=== PATIENT | male | born 1945 | race Caucasian/White ===

== ENCOUNTER 2022-12-12 14:37 | Emergency (ER) | payer SELFPAY ==
[2022-12-12 15:40] LABS: #Basophils 0.1 10x3/uL (0.0-0.2); #Eosinphils 0.1 10x3/uL (0.0-0.5); #Monocytes 0.2 10x3/uL (0.0-1.1); #Neutrophils 1.8 10x3/uL (1.5-8.4); %Basophils 1.9 % (0.0-2.0); %Eosinophils 2.7 % (0.0-6.0); %Lymphocytes 18.6 % (18.0-47.0); %Neutrophils 67.3 % (40.0-75.0); Hematocrit 28.1 % (38.8-50.0); Hemoglobin 9.9 g/dL (13.5-17.5); Mean Corpuscular HGB CONC 35.2 g/dL (32.0-36.0); Mean Corpuscular Hemoglobin 36.4 pg (27.0-33.0); Mean Corpuscular Volume 103.3 fl (81.2-95.1); Mean Platelet Volume 11.6 fl (7.4-10.4); Platelet Count 163 10x3/uL (150-450); RBC Distribution Width 14.7 % (11.5-14.5); Red Blood Cell (RBC) Count 2.72 10x6/uL (4.32-5.72); White Blood Cell (WBC) Count 2.6 10x3/uL (3.5-10.5)
[2022-12-12 16:03] LABS: ALT (SGPT) 44 U/L (8-55); AST (SGOT) 50 U/L (5-34); Albumin 3.7 g/dL (3.4-4.8); Alkaline Phosphatase 156 U/L (40-110); Anion Gap 10 mmol/L (10-20); BUN (Urea Nitrogen) 20 mg/dL (8.4-25.7); Bilirubin, Total 0.8 mg/dL (0.2-1.2); Calc. Creatinine Clearance 0 mL/min (70-130); Calcium 9.1 mg/dL (7.8-10.44); Carbon Dioxide 29 mmol/L (23-31); Chloride 97 mmol/L (98-107); Estimated GFR 89; Globulin 2.1 g/dL (2.4-3.5); Glucose 96 mg/dL (83-110); Potassium 4.6 mmol/L (3.5-5.1); Protein, Total 5.8 g/dL (5.8-8.1); Sodium 131 mmol/L (136-145)
[2022-12-12 16:06] LABS: Troponin I Less than 0.010 ng/mL (< 0.028)
[2022-12-12 16:19] LABS: INR-International Normal Ratio 1.1; PTT 25.9 sec (22.0-33.0); Prothrombin Time 12.1 sec (9.5-12.1)
== END 2022-12-12 17:34 | disposition home or self-care (01) ==
LOC: CSHERS 14:37
DX: D64.9 Anemia, unspecified (principal); D72.819 Decreased white blood cell count, unspecified; I25.10 Atherosclerotic heart disease of native coronary artery without angina pectoris; I48.91 Unspecified atrial fibrillation; I10 Essential (primary) hypertension; K21.9 Gastro-esophageal reflux disease without esophagitis; Z79.82 Long term (current) use of aspirin; Z79.01 Long term (current) use of anticoagulants
CPT/HCPCS: 36415; 80053; 83880; 84484; 85025; 85610; 85730; 93005

== ENCOUNTER 2023-09-30 03:17 | Inpatient (IN) | payer OTHER ==
[2023-09-30] MEDS ORDERED: Ipratropium/Albuterol 3 ML NEB ONE ×2 (03:40→17:25)
[2023-09-30 04:22] LABS: Hematocrit 20.5 % (38.8-50.0); Hemoglobin 6.7 g/dL (13.5-17.5); Mean Corpuscular HGB CONC 32.7 g/dL (32.0-36.0); Mean Corpuscular Hemoglobin 40.6 pg (27.0-33.0); Mean Corpuscular Volume 124.2 fL (81.2-95.1); Mean Platelet Volume 12.4 fL (7.4-10.4); Platelet Count 189 10x3/uL (150-450); RBC Distribution Width 19.6 % (11.5-14.5); Red Blood Cell (RBC) Count 1.65 10x6/uL (4.32-5.72); White Blood Cell (WBC) Count 1.5 10x3/uL (3.5-10.5)
[2023-09-30 04:23] LABS: MDiff Complete? YES
[2023-09-30 04:33] LABS: ALT (SGPT) 7 U/L (8-55); AST (SGOT) 16 U/L (5-34); Albumin 3.3 g/dL (3.4-4.8); Alkaline Phosphatase 131 U/L (40-110); Anion Gap 10 mmol/L (10-20); BUN (Urea Nitrogen) 13 mg/dL (8.4-25.7); Bilirubin, Total 1.8 mg/dL (0.2-1.2); Calc. Creatinine Clearance 0 mL/min (70-130); Calcium 8.7 mg/dL (7.8-10.44); Carbon Dioxide 24 mmol/L (23-31); Chloride 113 mmol/L (98-107); Estimated GFR 89; Globulin 2.1 g/dL (2.4-3.5); Glucose 100 mg/dL (83-110); Potassium 3.8 mmol/L (3.5-5.1); Protein, Total 5.4 g/dL (5.8-8.1); Sodium 143 mmol/L (136-145)
[2023-09-30 04:39] LABS: Troponin I Less than 0.010 ng/mL (< 0.028)
[2023-09-30 05:12] LABS: Band 3 % (5-11); Eosinophils 2 % (0-10); Lymphocytes 17 % (21-51); Monocytes 2 % (0-10); Neutrophil 68 % (42-75)
[2023-09-30 05:15] LABS: Anisocytosis SLIGHT = 6-15 cells (100X) (0-5/hpf); Giant Platelets SLIGHT HPF (0-5); Hypochromia SLIGHT = 6-15 cells (100X) (0-5/hpf); Macrocytosis SLIGHT = 6-15 cells (100X) (0-5/hpf); Microcytosis MODERATE=15-30 cells (100X) (0-5/hpf); Ovalocytes SLIGHT = 2-5 cells (100X) (0-1/hpf); Platelet Adequacy Comment Appears Adequate; Schistocytes SLIGHT = 2-5 cells (100X) (0-1/hpf); Tear Drops SLIGHT = 2-5 cells (100X) (0-1/hpf)
[2023-09-30 05:22] LABS: Analyzer IN Cardio CS ER; Base Excess 0.8 mEq/L (-2 - +2); Calcium, Ionized (venous) 1.15 mmol/L (1.16-1.32); Chloride (VBG) 109 mmol/L (98-106); Hematocrit-VBG 23 % (42.0-52.0); Hemoglobin (Hb) 7.8 g/dL (12.6-17.4); Potassium (VBG) 3.78 mmol/L (3.70-5.30); Puncture Site Other Site; Sodium 143 mmol/L (133-146)
[2023-09-30] MEDS ORDERED: Potassium Chloride 20 MEQ TAB ONE (05:22)
[2023-09-30] MEDS ORDERED: Furosemide 40 MG (4 mL) VIAL ONE (05:22)
[2023-09-30] MEDS ORDERED: LevoFLOXacin 750 mg/D5W 150 ml Premix Bag ONE (05:22)
[2023-09-30 07:38] LABS: Troponin I 0.014 ng/mL (< 0.028)
[2023-09-30 08:44] VITALS: BMI 28.5
[2023-09-30] MEDS ORDERED: Meclizine HCl 25 MG TAB PO PRN (09:27)
[2023-09-30 10:53] LABS: Troponin I 0.014 ng/mL (< 0.028)
[2023-09-30] MEDS ORDERED: Midodrine HCl 5 MG TAB PO PRN (14:00)
[2023-09-30] MEDS: Rivaroxaban 10 MG TAB PO SCH (16:52)
[2023-09-30 17:29] LABS: Hematocrit 25.1 % (38.8-50.0); Hemoglobin 8.4 g/dL (13.5-17.5); Mean Corpuscular HGB CONC 33.5 g/dL (32.0-36.0); Mean Corpuscular Hemoglobin 38.9 pg (27.0-33.0); Mean Corpuscular Volume 116.2 fL (81.2-95.1); Mean Platelet Volume 12.5 fL (7.4-10.4); Platelet Count 205 10x3/uL (150-450); RBC Distribution Width 24.8 % (11.5-14.5); Red Blood Cell (RBC) Count 2.16 10x6/uL (4.32-5.72); White Blood Cell (WBC) Count 2.2 10x3/uL (3.5-10.5)
[2023-09-30] MEDS: Ipratropium/Albuterol 3 ML NEB NEB PRN (17:30)
[2023-09-30] MEDS: methylPREDNISolone Sod Succ 40 MG VIAL IVP SCH (17:47)
[2023-09-30 18:24] LABS: Band 3 % (5-11); Eosinophils 4 % (0-10); Lymphocytes 16 % (21-51); Reactive Lymphocytes 3 % (0-10)
[2023-09-30 18:25] LABS: Neutrophil 64 % (42-75)
[2023-09-30 18:32] LABS: Monocytes 4 % (0-10)
[2023-09-30 18:33] LABS: Anisocytosis SLIGHT = 6-15 cells (100X) (0-5/hpf); Macrocytosis SLIGHT = 6-15 cells (100X) (0-5/hpf); Microcytosis SLIGHT = 6-15 cells (100X) (0-5/hpf)
[2023-09-30 18:34] LABS: Ovalocytes MODERATE= 6-15 cells (100X) (0-1/hpf)
[2023-09-30 18:35] LABS: Tear Drops SLIGHT = 2-5 cells (100X) (0-1/hpf)
[2023-09-30 18:36] LABS: Platelet Adequacy Comment Appears Adequate
[2023-09-30 18:37] LABS: Large Platelets MODERATE (None Seen); MDiff Complete? YES
[2023-09-30] MEDS: Lactulose 20 GM (30 mL) UDCUP PO SCH (20:15)
[2023-09-30] MEDS: Atorvastatin Calcium 40 MG TAB PO SCH (20:16)
[2023-09-30] MEDS: Divalproex Sodium 250 MG ER.TAB PO SCH (20:16)
[2023-09-30] MEDS: Calcium Carbonate 600 MG + Vit D TAB PO SCH (20:16)
[2023-09-30] MEDS: Terazosin HCl 1 MG CAP PO SCH (20:16)
[2023-09-30] MEDS: Acetaminophen 325 MG TAB PO PRN (23:18)
[2023-10-01] MEDS: Furosemide 20 MG (2 mL) VIAL SLOW IVP SCH (00:20)
[2023-10-01] MEDS: Aspirin 81 mg Enteric Coated Tablet PO SCH (08:52)
[2023-10-01] MEDS: FLUoxetine HCl 20 MG CAP PO SCH (08:52)
[2023-10-01] MEDS: Furosemide 40 MG (4 mL) VIAL SLOW IVP SCH ×2 (08:52→14:21)
[2023-10-01] MEDS: Ferrous Sulfate 325 MG TAB PO SCH (08:53)
[2023-10-02 10:02] VITALS: BMI 28.5
[2023-10-02 12:52] LABS: #Basophils 0.05 10x3/uL (0.0-0.2); #Eosinphils 0.01 10x3/uL (0.0-0.5); #Monocytes 0.16 10x3/uL (0.0-1.1); #Neutrophils 2.97 10x3/uL (1.5-8.4); %Basophils 1.5 % (0.0-2.0); %Eosinophils 0.3 % (0.0-6.0); %Lymphocytes 5.9 % (18.0-47.0); %Monocytes 4.7 % (0.0-10.0); Hemoglobin 8.3 g/dL (13.5-17.5); Mean Corpuscular HGB CONC 33.2 g/dL (32.0-36.0); Mean Corpuscular Hemoglobin 38.4 pg (27.0-33.0); Mean Corpuscular Volume 115.7 fL (81.2-95.1); Mean Platelet Volume 12.5 fL (7.4-10.4); Platelet Count 187 10x3/uL (150-450); RBC Distribution Width 22.9 % (11.5-14.5); Red Blood Cell (RBC) Count 2.16 10x6/uL (4.32-5.72); White Blood Cell (WBC) Count 3.4 10x3/uL (3.5-10.5)
[2023-10-02 13:01] LABS: Anion Gap 10 mmol/L (10-20); BUN (Urea Nitrogen) 23 mg/dL (8.4-25.7); Calc. Creatinine Clearance 105 mL/min (70-130); Calcium 9.6 mg/dL (7.8-10.44); Carbon Dioxide 31 mmol/L (23-31); Chloride 104 mmol/L (98-107); Estimated GFR 92; Glucose 135 mg/dL (83-110); Potassium 4.2 mmol/L (3.5-5.1); Sodium 141 mmol/L (136-145)
[2023-10-02] MEDS: Doxycycline 100 MG CAP PO SCH ×2 (13:10→21:36)
[2023-10-02] MEDS: Spironolactone 25 MG TAB PO SCH (13:10)
[2023-10-02] MEDS: methylPREDNISolone Sod Succ 40 MG VIAL IVP SCH (13:14)
[2023-10-02] MEDS ORDERED: Electrolyte Replacement Protocol 1 EACH FS SCH (16:00)
[2023-10-03] MEDS: Ipratropium/Albuterol 3 ML NEB NEB SCH (01:39)
[2023-10-03 04:50] LABS: #Basophils 0.04 10x3/uL (0.0-0.2); #Eosinphils 0.01 10x3/uL (0.0-0.5); #Monocytes 0.14 10x3/uL (0.0-1.1); #Neutrophils 2.52 10x3/uL (1.5-8.4); %Basophils 1.4 % (0.0-2.0); %Eosinophils 0.3 % (0.0-6.0); %Lymphocytes 7.8 % (18.0-47.0); %Monocytes 4.7 % (0.0-10.0); %Neutrophils 85.1 % (40.0-75.0); Anion Gap 8 mmol/L (10-20); BUN (Urea Nitrogen) 28 mg/dL (8.4-25.7); Calc. Creatinine Clearance 102 mL/min (70-130); Calcium 9.6 mg/dL (7.8-10.44); Carbon Dioxide 33 mmol/L (23-31); Chloride 104 mmol/L (98-107); Estimated GFR 91; Glucose 123 mg/dL (83-110); Hematocrit 22.8 % (38.8-50.0); Hemoglobin 7.5 g/dL (13.5-17.5); Mean Corpuscular HGB CONC 32.9 g/dL (32.0-36.0); Mean Corpuscular Hemoglobin 38.1 pg (27.0-33.0); Mean Corpuscular Volume 115.7 fL (81.2-95.1); Mean Platelet Volume 12.5 fL (7.4-10.4); Platelet Count 195 10x3/uL (150-450); Potassium 3.9 mmol/L (3.5-5.1); RBC Distribution Width 22.5 % (11.5-14.5); Red Blood Cell (RBC) Count 1.97 10x6/uL (4.32-5.72); Sodium 141 mmol/L (136-145)
[2023-10-03] MEDS: Spironolactone 25 MG TAB PO SCH (08:33)
[2023-10-03] MEDS: Guaifenesin DM 100-10/5 ML UDCUP PO SCH (11:32)
[2023-10-03] MEDS: Furosemide 40 MG TAB PO SCH (15:00)
[2023-10-04 04:48] LABS: ALT (SGPT) 13 U/L (8-55); AST (SGOT) 19 U/L (5-34); Albumin 3.2 g/dL (3.4-4.8); Alkaline Phosphatase 90 U/L (40-110); Anion Gap 11 mmol/L (10-20); BUN (Urea Nitrogen) 29 mg/dL (8.4-25.7); Bilirubin, Total 1.3 mg/dL (0.2-1.2); Calc. Creatinine Clearance 106 mL/min (70-130); Calcium 9.7 mg/dL (7.8-10.44); Carbon Dioxide 33 mmol/L (23-31); Chloride 101 mmol/L (98-107); Estimated GFR 92; Globulin 1.9 g/dL (2.4-3.5); Glucose 115 mg/dL (83-110); Potassium 4.1 mmol/L (3.5-5.1); Protein, Total 5.1 g/dL (5.8-8.1); Sodium 141 mmol/L (136-145)
[2023-10-04] MEDS: predniSONE 20 MG TAB PO SCH (08:58)
[2023-10-04] MEDS ORDERED: methylPREDNISolone Sod Succ 40 MG VIAL IVP SCH (09:00)
[2023-10-04] MEDS: Spironolactone 25 MG TAB PO SCH (09:03)
[2023-10-04 12:05] VITALS: BP 136/65; TEMP 98.4
[2023-10-04] MEDS: Guaifenesin DM 100-10/5 ML UDCUP PO SCH (12:05)
== END 2023-10-04 14:16 | disposition home or self-care (01) | DRG 291 ==
LOC: CSHERS 03:17 → EEVIPCON 07:05 → CSHTELE 07:05
PROVIDERS: ADMIT Family Medicine; ATTEND Family Medicine
PROC: 30233N1 Transfusion of Nonautologous Red Blood Cells into Peripheral Vein, Percutaneous Approach (ICD-10-PCS; principal; 2023-09-30)
DX: I11.0 Hypertensive heart disease with heart failure (principal); I50.33 Acute on chronic diastolic (congestive) heart failure; J96.21 Acute and chronic respiratory failure with hypoxia; J44.1 Chronic obstructive pulmonary disease with (acute) exacerbation; D61.9 Aplastic anemia, unspecified; R79.89 Other specified abnormal findings of blood chemistry; D72.819 Decreased white blood cell count, unspecified; J84.10 Pulmonary fibrosis, unspecified; I48.91 Unspecified atrial fibrillation; F39 Unspecified mood [affective] disorder; I25.10 Atherosclerotic heart disease of native coronary artery without angina pectoris; N40.0 Benign prostatic hyperplasia without lower urinary tract symptoms; M19.90 Unspecified osteoarthritis, unspecified site; K21.9 Gastro-esophageal reflux disease without esophagitis; Z85.46 Personal history of malignant neoplasm of prostate; Z91.041 Radiographic dye allergy status; Z79.82 Long term (current) use of aspirin; Z79.899 Other long term (current) drug therapy; Z79.01 Long term (current) use of anticoagulants; Z95.5 Presence of coronary angioplasty implant and graft; Z87.891 Personal history of nicotine dependence
CPT/HCPCS: 36415; 36430; 71045; 71250; 80048; 80053; 82274; 82805; 83880; 84484; 85025; 86850; 86900; 86901; 93005; 93306; 94640; 94760; 94762; 96365; 96375; 97139; J1940; J1956; J2920; J7512; J7620; P9016